=== PATIENT | female | born 2000 | race African-American/Black ===

== ENCOUNTER 2019-11-09 16:23 | Inpatient (IN) | payer MEDICAID, OTHER ==
[~2019-11-09] VITALS: Ht 177.8 cm; Wt 117.9 kg
[~2019-11-09 16:23] MED LIST: FOLI-43 PO; METH2.5T PO; OMEP20CA14 PO; OYSTER SHELL CAL PO; PRED5TAB48 PO; [UNRECOGNIZED DRUG - OTHER] SQ
[2019-11-09] MEDS ORDERED: ONDANSETRON HCL 4MG/2ML INJ IV STA (21:50)
[2019-11-09] MEDS ORDERED: SODIUM CHLORIDE 0.9% 1,000 ML IV ONE (21:50)
[2019-11-09] MEDS ORDERED: SODIUM CHLORIDE 0.9% 1000ML BAG (SEPSIS BOLUS) IV ONE (22:00)
[2019-11-09 22:35] LABS: CLARITY URINE CLOUDY (CLEAR); COLOR URINE DK YELLOW (YELLOW); KETONES URINE NEGATIVE (NEGATIVE); LEUKOCYTE ESTERASE URINE TRACE (NEGATIVE); NITRITE URINE NEGATIVE (NEGATIVE); OCCULT BLOOD URINE NEGATIVE (NEGATIVE); PROTEIN URINE TRACE (NEGATIVE); SPECIFIC GRAVITY URINE 1.031 (1.005-1.030); UROBILINOGEN URINE 0.2 E.U./dL (0.2-1.0)
[2019-11-09] MEDS ORDERED: MORPHINE SULFATE 4 MG/ML CPJ (NOT FOR IM USE) IV ONE (22:45)
[2019-11-09] MEDS ORDERED: LEVOFLOXACIN 500MG PREMIX 100 ML IV ONE (22:45)
[2019-11-09 23:10] LABS: BASOPHILS % 0.5 % (0.0-2.0); EOSINOPHILS % 0.2 % (0.0-5.0); HEMATOCRIT. 38.5 % (36.0-48.0); HEMOGLOBIN. 12.7 g/dL (12.0-16.0); LYMPHOCYTES % 12.1 % (20.0-50.0); MEAN CORPUSCULAR HEMOGLOBIN 25.2 pg (28.0-32.0); MEAN CORPUSCULAR VOLUME 76.4 fL (81.0-99.0); MEAN PLATELET VOLUME 8.9 fl (7.4-10.4); MONOCYTES % 11.3 % (2.0-8.0); NEUTROPHILS % 75.9 % (40.0-76.0); PLATELET 349 x1000/uL (130-400); RED BLOOD CELL COUNT 5.04 mill/uL (4.2-5.4); RED CELL DISTRIBUTION WIDTH 15.5 % (11.6-14.6)
[2019-11-09 23:21] LABS: CHLORIDE 107 mEq/L (98-107)
[2019-11-09] MEDS ORDERED: OSELTAMIVIR 75MG CAPSULE PO ONE (23:45)
[2019-11-10] MEDS ORDERED: ACETAMINOPHEN 650MG/20.3ML UDC PO ONE (00:15)
[2019-11-10 03:44] VITALS: BP 127/52
[2019-11-10] MEDS ORDERED: ONDANSETRON HCL 4MG/2ML INJ IV PRN (05:15)
[2019-11-10] MEDS: GUAIFENESIN-DM 200MG-20MG/10ML UDC PO PRN ×2 (05:52→15:06)
[2019-11-10] MEDS: HYDROCODONE/ACETAMINOPHEN 5/325MG TABLET PO PRN ×2 (05:56→14:22)
[2019-11-10] MEDS: ACETAMINOPHEN 325MG TABLET PO PRN ×2 (05:56→21:34)
[2019-11-10] MEDS: SODIUM CHLORIDE 0.9% 1,000 ML IV SCH (05:58)
[2019-11-10 08:00] VITALS: BP 130/57
[2019-11-10] MEDS: IBUPROFEN 400MG TABLET PO PRN ×2 (10:30→22:52)
[2019-11-10] MEDS: OSELTAMIVIR 75MG CAPSULE PO SCH ×2 (10:30→21:33)
[2019-11-10] MEDS: ENOXAPARIN 30MG/0.3ML SYR SUBCUT SCH ×2 (10:31→21:34)
[2019-11-10 12:00] VITALS: BP 118/50
[2019-11-10 14:10] LABS: HCG SCREEN NEGATIVE
[2019-11-10 14:11] LABS: CREATINE KINASE 98 IU/L (26-192)
[2019-11-10 14:13] LABS: CREATINE KINASE MB FRACTION < 1.0 ng/mL (0.5-3.6)
[2019-11-10 16:00] VITALS: BP 119/97
[2019-11-10 17:34] LABS: CREATINE KINASE 97 IU/L (26-192)
[2019-11-10 17:35] LABS: CREATINE KINASE MB FRACTION < 1.0 ng/mL (0.5-3.6)
[2019-11-10] MEDS ORDERED: IOHEXOL-350 100 ML BOTTLE ONE (18:14)
[2019-11-10 20:45] VITALS: BP 120/68
[2019-11-10] MEDS ORDERED: SULF500T8 (22:58)
[2019-11-10] MEDS ORDERED: NORE-80 (22:58)
[2019-11-10] MEDS ORDERED: ESCI20TA43 (22:58)
[2019-11-10] MEDS ORDERED: TOPI25TA48 (22:58)
[2019-11-11] VITALS: BP 110/69
[2019-11-11] MEDS: SODIUM CHLORIDE 0.9% 1,000 ML IV SCH ×2 (00:46→16:43)
[2019-11-11 03:15] LABS: *COCAINE SCREEN URINE NEGATIVE (NEGATIVE); METHADONE URINE SCREEN NEGATIVE (NEGATIVE)
[2019-11-11 03:16] LABS: *AMPHETAMINES SCREEN URINE NEGATIVE (NEGATIVE); *BARBITURATES SCREEN URINE NEGATIVE (NEGATIVE); *BENZODIAZEPINES SCREEN URINE NEGATIVE (NEGATIVE); CANNABINOID URINE SCREEN NEGATIVE (NEGATIVE); PHENCYCLIDINE URINE SCREEN NEGATIVE (NEGATIVE)
[2019-11-11 03:24] LABS: OPIATES URINE SCREEN PRESUMTIVE POSITIVE (NEGATIVE)
[2019-11-11 04:00] VITALS: BP 120/69
[2019-11-11] MEDS: ACETAMINOPHEN 325MG TABLET PO PRN (07:03)
[2019-11-11] MEDS: ENOXAPARIN 30MG/0.3ML SYR SUBCUT SCH ×2 (08:25→21:34)
[2019-11-11] MEDS: OSELTAMIVIR 75MG CAPSULE PO SCH ×2 (08:25→21:35)
[2019-11-11] MEDS: IBUPROFEN 400MG TABLET PO PRN (08:30)
[2019-11-11 12:00] VITALS: BP 129/69
[2019-11-11 16:00] VITALS: BP 112/61
[2019-11-11 20:00] VITALS: BP 102/54
[2019-11-12] VITALS (7 sets, daily range): BP systolic 101–118; BP diastolic 57–73
[2019-11-12] MEDS: ACETAMINOPHEN 325MG TABLET PO PRN (00:29)
[2019-11-12] MEDS: SODIUM CHLORIDE 0.9% 1,000 ML IV SCH ×2 (05:50→16:02)
[2019-11-12] MEDS: ENOXAPARIN 30MG/0.3ML SYR SUBCUT SCH (08:20)
[2019-11-12] MEDS: OSELTAMIVIR 75MG CAPSULE PO SCH ×2 (08:20→20:38)
[2019-11-12 08:22] LABS: BASOPHILS % 0.4 % (0.0-2.0); EOSINOPHILS % 0.4 % (0.0-5.0); HEMATOCRIT. 37.5 % (36.0-48.0); HEMOGLOBIN. 12.5 g/dL (12.0-16.0); LYMPHOCYTES % 53.6 % (20.0-50.0); MEAN CORPUSCULAR HEMOGLOBIN 25.1 pg (28.0-32.0); MEAN CORPUSCULAR VOLUME 75.1 fL (81.0-99.0); MEAN PLATELET VOLUME 9.5 fl (7.4-10.4); MONOCYTES % 14.7 % (2.0-8.0); NEUTROPHILS % 30.9 % (40.0-76.0); PLATELET 277 x1000/uL (130-400); RED BLOOD CELL COUNT 4.99 mill/uL (4.2-5.4); RED CELL DISTRIBUTION WIDTH 15.8 % (11.6-14.6)
[2019-11-12 08:24] LABS: CHLORIDE 108 mEq/L (98-107)
[2019-11-12] MEDS ORDERED: TUSSL PO (17:50)
[2019-11-12] MEDS ORDERED: TAM75 PO (17:50)
== END 2019-11-12 20:40 | disposition home or self-care (01) | DRG 113 ==
LOC: ER 16:23 → 5WST 11-10 00:10 → EDBEDREQTM 11-10 00:12 → EDBEDREQSVC 11-10 00:12 → EDBEDREQ 11-10 00:12 → EDBEDREQDT 11-10 00:12 → ENRESERV 11-10 02:16
PROVIDERS: ADMIT Internal Medicine; ATTEND Internal Medicine
DX: J10.1 Influenza due to other identified influenza virus with other respiratory manifestations (principal); K76.0 Fatty (change of) liver, not elsewhere classified; E66.01 Morbid (severe) obesity due to excess calories; R16.2 Hepatomegaly with splenomegaly, not elsewhere classified; F32.9 Major depressive disorder, single episode, unspecified; R79.89 Other specified abnormal findings of blood chemistry; E86.0 Dehydration; D72.820 Lymphocytosis (symptomatic); D72.821 Monocytosis (symptomatic); M08.90 Juvenile arthritis, unspecified, unspecified site; Z79.899 Other long term (current) drug therapy; Z68.37 Body mass index [BMI] 37.0-37.9, adult
CPT/HCPCS: 36415; 71045; 71275; 80048; 80053; 80305; 81003; 81025; 82550; 82553; 83605; 84145; 84443; 84484; 84703; 85025; 85379; 87804; 93005; 93970; 96365; 96375; 99291; J1650; J1956; J2270; J2405; J7030; Q9967

== ENCOUNTER 2024-03-12 20:09 | Emergency (ER) | payer MEDICAID ==
[~2024-03-12] VITALS: Ht 177.8 cm; Wt 132.0 kg
[~2024-03-12 20:09] MED LIST changes: +ESCI20TA37; -FOLI-43 PO; -METH2.5T PO; +NORE-80; -OMEP20CA14 PO; -OYSTER SHELL CAL PO; -PRED5TAB48 PO; +SULF500T8; +TAM75 PO; +TOPI25TA48; +TUSSL PO; -[UNRECOGNIZED DRUG - OTHER] SQ
[2024-03-12 20:16] VITALS: BP 130/73; PULSE 106; RESP 20; TEMP 97.8; O2SAT 98
[2024-03-12] MEDS ORDERED: LIDOCAINE HCL 1% 20ML VIAL INFIL ONE (21:15)
== END 2024-03-13 01:03 | disposition home or self-care (01) ==
LOC: ER 20:09
DX: S99.822A Other specified injuries of left foot, initial encounter (principal); F41.9 Anxiety disorder, unspecified; F32.A Depression, unspecified; Z88.0 Allergy status to penicillin; X58.XXXA Exposure to other specified factors, initial encounter; Y93.89 Activity, other specified; Y92.89 Other specified places as the place of occurrence of the external cause; Y99.8 Other external cause status
CPT/HCPCS: 11730; 73630; 99284

== ENCOUNTER 2024-09-04 16:13 | Emergency (ER) | payer MEDICAID ==
[~2024-09-04] VITALS: Ht 177.8 cm; Wt 127.0 kg
[2024-09-04 16:24] VITALS: O2SAT 94
[2024-09-04] MEDS ORDERED: ALBUTEROL (0.083%) 2.5MG/3ML NEB HHN STA (17:45)
[2024-09-04] MEDS ORDERED: IPRATROPIUM BROMIDE (0.02%) 0.5MG/2.5ML NEB HHN STA (17:45)
[2024-09-04 17:52] LABS: CLARITY URINE CLEAR (CLEAR); COLOR URINE YELLOW (YELLOW); GLUCOSE URINE NEGATIVE (NEGATIVE); KETONES URINE NEGATIVE (NEGATIVE); LEUKOCYTE ESTERASE URINE 1+ (NEGATIVE); NITRITE URINE NEGATIVE (NEGATIVE); OCCULT BLOOD URINE NEGATIVE (NEGATIVE); PROTEIN URINE NEGATIVE (NEGATIVE); SPECIFIC GRAVITY URINE 1.019 (1.005-1.030); UROBILINOGEN URINE 0.2 E.U./dL (0.2-1.0)
[2024-09-04] MEDS: PREDNISONE 20MG TABLET PO STA (18:05)
[2024-09-04 18:29] LABS: BACTERIA URINE TRACE; RBC URINE 0-2 /hpf (0-2); SQUAMOUS EPITHELIAL CELL URINE FEW /lpf (RARE/1+); WBC URINE 0-2 /hpf (0-2)
[2024-09-04] MEDS: ALBUTEROL (0.083%) 2.5MG/3ML NEB HHN NR (21:05)
[2024-09-04] MEDS: IPRATROPIUM BROMIDE (0.02%) 0.5MG/2.5ML NEB HHN NR (21:05)
[2024-09-04] MEDS ORDERED: P50 MT (22:18)
[2024-09-04 22:30] VITALS: BP 109/79; PULSE 112; RESP 19; TEMP 36.66960; O2SAT 98
== END 2024-09-04 22:48 | disposition home or self-care (01) ==
LOC: ER 16:13
DX: J45.901 Unspecified asthma with (acute) exacerbation (principal); F41.9 Anxiety disorder, unspecified; F32.A Depression, unspecified; Z88.0 Allergy status to penicillin
CPT/HCPCS: 81003; 81025; 71045; 93005; 99285; J7512; Z7610 ×2